=== PATIENT | female | born 1970 | race Two or more races ===

== ENCOUNTER 2020-04-08 12:16 | Emergency (ER) | payer MEDICAID, OTHER ==
[~2020-04-08] VITALS: Ht 157.5 cm; Wt 54.4 kg
[2020-04-08 13:11] VITALS: BP 129/83
== END 2020-04-08 14:44 | disposition home or self-care (01) ==
LOC: ER 12:16
DX: J02.9 Acute pharyngitis, unspecified (principal); M54.2 Cervicalgia

== ENCOUNTER 2021-01-10 09:54 | Emergency (ER) | payer MEDICAID ==
[~2021-01-10] VITALS: Ht 154.9 cm; Wt 52.2 kg
[2021-01-10 11:45] VITALS: BP 112/72
== END 2021-01-10 11:45 | disposition home or self-care (01) ==
LOC: ER 09:54
DX: S82.832A Other fracture of upper and lower end of left fibula, initial encounter for closed fracture (principal); F17.210 Nicotine dependence, cigarettes, uncomplicated; X58.XXXA Exposure to other specified factors, initial encounter; Y93.89 Activity, other specified; Y92.89 Other specified places as the place of occurrence of the external cause; Y99.8 Other external cause status
CPT/HCPCS: 73600

== ENCOUNTER 2021-04-14 09:42 | Emergency (ER) | payer MEDICAID ==
[~2021-04-14] VITALS: Ht 157.5 cm; Wt 51.7 kg
[2021-04-14 10:11] VITALS: BP 112/80
[2021-04-14 11:06] LABS: Urine Bacteria NONE SEEN /hpf (None Seen); Urine Blood Negative /uL (Negative); Urine Specific Gravity 1.005 (1.001-1.035); Urine WBC <1 /hpf (0 - 5)
[2021-04-14] MEDS ORDERED: DOCU-94 PO (11:13)
== END 2021-04-14 11:20 | disposition home or self-care (01) ==
LOC: ER 09:42
DX: K59.00 Constipation, unspecified (principal); K44.9 Diaphragmatic hernia without obstruction or gangrene; F17.210 Nicotine dependence, cigarettes, uncomplicated; Z90.49 Acquired absence of other specified parts of digestive tract
CPT/HCPCS: 74176; 81001

== ENCOUNTER 2021-06-17 16:29 | Emergency (ER) | payer MEDICAID ==
[~2021-06-17] VITALS: Ht 154.9 cm; Wt 49.9 kg
[~2021-06-17 16:29] MED LIST: DOCU-94 PO
[2021-06-17 16:37] VITALS: BP 112/78
[2021-06-17] MEDS ORDERED: IBUP600T27 PO (17:59)
== END 2021-06-17 18:04 | disposition home or self-care (01) ==
LOC: ER 16:32
DX: M25.572 Pain in left ankle and joints of left foot (principal); K21.9 Gastro-esophageal reflux disease without esophagitis; F17.210 Nicotine dependence, cigarettes, uncomplicated; Z90.49 Acquired absence of other specified parts of digestive tract; Z79.1 Long term (current) use of non-steroidal anti-inflammatories (NSAID); Z79.899 Other long term (current) drug therapy
CPT/HCPCS: 73610

== ENCOUNTER 2021-09-25 09:49 | Emergency (ER) | payer MEDICAID ==
[~2021-09-25] VITALS: Ht 154.9 cm; Wt 49.9 kg
[~2021-09-25 09:49] MED LIST changes: +IBUP600T27 PO
[2021-09-25 10:38] VITALS: BP 121/72
[2021-09-25] MEDS ORDERED: methylPREDNISolone SOD SUCC 125 MG/2 ML VL IM ONE (11:00)
[2021-09-25] MEDS ORDERED: diphenhdrAMINE HCL 50 MG/1 ML VL IM ONE (11:00)
[2021-09-25] MEDS ORDERED: PRED20TA2 PO (11:03)
[2021-09-25] MEDS ORDERED: CETITAB29 PO (11:03)
== END 2021-09-25 11:31 | disposition home or self-care (01) ==
LOC: ER 09:49
DX: T78.40XA Allergy, unspecified, initial encounter (principal); K21.9 Gastro-esophageal reflux disease without esophagitis; F17.210 Nicotine dependence, cigarettes, uncomplicated; Z90.49 Acquired absence of other specified parts of digestive tract; Z79.1 Long term (current) use of non-steroidal anti-inflammatories (NSAID); Z79.899 Other long term (current) drug therapy; Y92.89 Other specified places as the place of occurrence of the external cause
CPT/HCPCS: 96372; 99284; J1200; J2930

== ENCOUNTER 2021-09-28 12:27 | Emergency (ER) | payer MEDICAID ==
[~2021-09-28] VITALS: Ht 154.9 cm; Wt 49.9 kg
[~2021-09-28 12:27] MED LIST changes: +CETITAB29 PO; +PRED20TA2 PO
[2021-09-28] MEDS ORDERED: LORazepam 2MG/ML-1ML VIAL IM ONE (15:00)
[2021-09-28] MEDS ORDERED: ALPR0.5T PO (15:42)
[2021-09-28 16:11] VITALS: BP 116/65
== END 2021-09-28 16:38 | disposition home or self-care (01) ==
LOC: ER 12:27
DX: F41.8 Other specified anxiety disorders (principal); K21.9 Gastro-esophageal reflux disease without esophagitis; F17.210 Nicotine dependence, cigarettes, uncomplicated; Z90.49 Acquired absence of other specified parts of digestive tract; Z79.1 Long term (current) use of non-steroidal anti-inflammatories (NSAID); Z79.899 Other long term (current) drug therapy
CPT/HCPCS: 96372; 99283; J2060

== ENCOUNTER 2021-10-28 14:44 | Emergency (ER) | payer MEDICAID ==
[~2021-10-28] VITALS: Ht 154.9 cm; Wt 52.7 kg
[~2021-10-28 14:44] MED LIST changes: +ALPR0.5T PO
[2021-10-28 14:55] VITALS: BP 117/78
[2021-10-28] MEDS ORDERED: ALPRAZolam 0.5 MG TAB PO ONE (16:00)
[2021-10-28 16:30] LABS: Basophils # (auto) 0.1 10 ^3/uL (0-0.2); Basophils % (auto) 0.8 % (0.0-2.0); Eosinophils # (auto) 0.1 10 ^3/uL (0-0.8); Hematocrit 45.7 % (36.0-46.0); Lymphocytes # (auto) 2.5 10 ^3/uL (0.4-5.4); Lymphocytes % (auto) 34.5 % (10.0-50.0); Mean Corpuscular Hemoglobin 29.9 pg (28.0-32.0); Mean Corpuscular Hgb Conc. 32.7 g/dL (32.0-36.0); Mean Corpuscular Volume 91.3 fL (80.0-100.0); Monocytes # (auto) 0.6 10 ^3/uL (0-1.3); Neutrophils # (auto) 3.9 10 ^3/uL (1.6-8.6); Neutrophils % (auto) 54.7 % (37.0-80.0); Red Blood Cells 5.01 10^6/uL (4.0-5.20); Red Cell Distribution Width 13.3 % (11.8-14.3); White Blood Cell 7.2 10^3/uL (4.4-10.8)
[2021-10-28 16:40] LABS: BUN/Creatinine Ratio 21.3; Calcium 9.4 mg/dL (8.5-10.1); Potassium 4.7 mmol/L (3.5-5.1)
[2021-10-28 16:44] LABS: Alcohol, Urine < 3.0 mg/dL (0-10); Amphetamine Screen, Urine NEGATIVE (NEGATIVE); Barbiturate Scree,Urine NEGATIVE (NEGATIVE); Benzodiazephine Screen, Urine NEGATIVE (NEGATIVE); Cannabinoid Screen, Urine NEGATIVE (NEGATIVE); Cocaine Screen, Urine NEGATIVE (NEGATIVE); Opiate Scree,Urine NEGATIVE (NEGATIVE); Phencyclidine Screen, Urine NEGATIVE (NEGATIVE)
[2021-10-28] MEDS ORDERED: HYDR50CA PO (17:08)
== END 2021-10-28 17:15 | disposition home or self-care (01) ==
LOC: ER 14:44
DX: R20.2 Paresthesia of skin (principal); F41.8 Other specified anxiety disorders; K21.9 Gastro-esophageal reflux disease without esophagitis; F17.210 Nicotine dependence, cigarettes, uncomplicated; Z90.49 Acquired absence of other specified parts of digestive tract; Z79.899 Other long term (current) drug therapy; Z79.1 Long term (current) use of non-steroidal anti-inflammatories (NSAID)
CPT/HCPCS: 36415; 80048; 80307; 84484; 85025

== ENCOUNTER 2022-11-03 15:18 | Emergency (ER) | payer MEDICAID ==
[~2022-11-03] VITALS: Ht 154.9 cm; Wt 59.2 kg
[~2022-11-03 15:18] MED LIST changes: +HYDR50CA PO; +IBUP-1454 PO; -IBUP600T27 PO
[2022-11-03 15:25] VITALS: BP 135/78; PULSE 96; RESP 18
[2022-11-03] MEDS ORDERED: KETOROLAC TROMETH 60MG/2ML VIAL IM ONE (17:15)
[2022-11-03] MEDS ORDERED: TRAM50TA2 PO (17:51)
[2022-11-03] MEDS ORDERED: METH-1182 PO (17:51)
[2022-11-03 18:02] VITALS: O2SAT 98
[2022-11-03 18:07] LABS: Urine Bacteria NONE SEEN /hpf (None Seen); Urine WBC 1 /hpf (0 - 5)
[2022-11-03 19:13] LABS: Urine Clarity CLEAR (Clear); Urine Color Straw (Yellow)
[2022-11-03 19:14] LABS: Urine Protein, UAD Negative (Negative)
[2022-11-03 19:15] LABS: Urine Blood Negative /uL (Negative); Urine Urobilinogen Normal (Negative); Urine pH 5 (5.0-8.0)
== END 2022-11-03 18:04 | disposition left against medical advice (07) ==
LOC: ER 15:20
DX: G89.29 Other chronic pain (principal); F41.9 Anxiety disorder, unspecified; K21.9 Gastro-esophageal reflux disease without esophagitis; F20.9 Schizophrenia, unspecified; F17.210 Nicotine dependence, cigarettes, uncomplicated; Z90.49 Acquired absence of other specified parts of digestive tract; Z79.899 Other long term (current) drug therapy
CPT/HCPCS: 81001; 96372; 99283; J1885

== ENCOUNTER 2022-11-11 08:14 | Emergency (ER) | payer MEDICAID ==
[~2022-11-11] VITALS: Ht 154.9 cm; Wt 56.0 kg
[~2022-11-11 08:14] MED LIST changes: +METH-1182 PO; +TRAM50TA2 PO
[2022-11-11 08:40] LABS: Urine WBC None Seen /hpf (0 - 5)
[2022-11-11 08:44] VITALS: BP 126/92; PULSE 72; RESP 16; TEMP 98; O2SAT 99
[2022-11-11 08:54] LABS: Urine Bacteria NONE SEEN /hpf (None Seen); Urine Blood Negative /uL (Negative); Urine Clarity Clear (Clear); Urine Color Colorless (Yellow); Urine Protein, UAD Negative (Negative); Urine Specific Gravity 1.008 (1.001-1.035); Urine Urobilinogen Normal (Negative); Urine pH 6.5 (5.0-8.0)
[2022-11-11] MEDS ORDERED: diphenhdrAMINE HCL 50 MG/1 ML VL IM ONE (09:15)
[2022-11-11] MEDS ORDERED: HYDR-3682 PO (10:03)
[2022-11-11] MEDS ORDERED: CALA1SUS2 EX (10:04)
[2022-11-11 14:11] LABS: Alcohol, Urine < 3.0 mg/dL (0-10); Amphetamine Screen, Urine NEGATIVE (NEGATIVE); Barbiturate Scree,Urine NEGATIVE (NEGATIVE); Cannabinoid Screen, Urine NEGATIVE (NEGATIVE); Cocaine Screen, Urine NEGATIVE (NEGATIVE); Phencyclidine Screen, Urine NEGATIVE (NEGATIVE)
[2022-11-11 14:14] LABS: Benzodiazephine Screen, Urine NEGATIVE (NEGATIVE); Opiate Scree,Urine NEGATIVE (NEGATIVE)
== END 2022-11-11 10:13 | disposition home or self-care (01) ==
LOC: ER 08:14
DX: L29.9 Pruritus, unspecified (principal); F17.210 Nicotine dependence, cigarettes, uncomplicated; K21.9 Gastro-esophageal reflux disease without esophagitis; F31.9 Bipolar disorder, unspecified; F20.9 Schizophrenia, unspecified; Z79.899 Other long term (current) drug therapy
CPT/HCPCS: 80307; 81001; 81025; 82962; 96372; 99283; J1200